=== PATIENT | male | born 1985 | race Two or more races ===

== ENCOUNTER 2021-08-31 18:33 | Emergency (ER) | payer MEDICAID, OTHER ==
[~2021-08-31] VITALS: Ht 182.9 cm; Wt 80.3 kg
[2021-09-01 00:45] VITALS: BP 153/45
== END 2021-09-01 00:55 | disposition home or self-care (01) ==
LOC: ER 18:33
DX: S09.8XXA Other specified injuries of head, initial encounter (principal); Y08.89XA Assault by other specified means, initial encounter; Y93.89 Activity, other specified; Y92.89 Other specified places as the place of occurrence of the external cause; Y99.8 Other external cause status
CPT/HCPCS: 70450; 70486

== ENCOUNTER 2021-09-01 14:50 | Emergency (ER) | payer MEDICAID ==
[~2021-09-01] VITALS: Ht 180.3 cm; Wt 81.6 kg
[2021-09-02 07:48] VITALS: BP 128/84
[2021-09-02 09:09] LABS: Alcohol, Urine < 3.0 mg/dL (0-10); Amphetamine Screen, Urine NEGATIVE (NEGATIVE); Barbiturate Scree,Urine NEGATIVE (NEGATIVE); Benzodiazephine Screen, Urine NEGATIVE (NEGATIVE); Cannabinoid Screen, Urine NEGATIVE (NEGATIVE); Cocaine Screen, Urine NEGATIVE (NEGATIVE); Opiate Scree,Urine NEGATIVE (NEGATIVE); Phencyclidine Screen, Urine NEGATIVE (NEGATIVE)
== END 2021-09-02 11:00 | disposition home or self-care (01) ==
LOC: EDBD 14:50 → ER 14:50 → EDUNIT# 14:50 → ER 09-02 11:00
DX: S90.32XA Contusion of left foot, initial encounter (principal); F20.9 Schizophrenia, unspecified; Z20.822 Contact with and (suspected) exposure to COVID-19; X58.XXXA Exposure to other specified factors, initial encounter; Y93.89 Activity, other specified; Y92.89 Other specified places as the place of occurrence of the external cause; Y99.8 Other external cause status
CPT/HCPCS: 36415; 73630; 80307; 87426